=== PATIENT | female | born 1985 | race Caucasian/White ===

== ENCOUNTER 2018-02-26 20:09 | Emergency (ER) | payer MEDICAID ==
[2018-02-26 22:50] LABS: ADD MAN DIFF? NO
[2018-02-26 22:53] LABS: ABNORMAL IP MESSAGE 1; BASOPHILS % 0.3 % (0.0-2.0); EOSINOPHILS # 0.1 10^3/ul (0.0-0.5); EOSINOPHILS % 1.1 % (0.0-7.0); HEMATOCRIT 28.4 % (37.0-47.0); HEMOGLOBIN 7.8 g/dl (12.0-16.0); LYMPHOCYTES # 2.1 10^3/ul (0.8-2.9); LYMPHOCYTES % 33.5 % (15.0-51.0); MEAN CORPUSCULAR HEMOGLOBIN 20.3 pg (29.0-33.0); MEAN CORPUSCULAR HGB CONC 27.5 g/dl (32.0-37.0); MEAN PLATELET VOLUME 10.9 fl (7.4-10.4); MONOCYTE # 0.5 10^3/ul (0.3-0.9); MONOCYTES % 7.7 % (0.0-11.0); NEUTROPHIL # 3.6 10^3/ul (1.6-7.5); NEUTROPHILS % 57.1 % (39.0-77.0); PLATELET COUNT 357 10^3/UL (140-415); RED BLOOD COUNT 3.84 10^6/ul (4.20-5.40); RED CELL DISTRIBUTION WIDTH 24.9 % (11.5-14.5)
[2018-02-26 22:53] LABS: WHITE BLOOD COUNT 6.3 10^3/ul (4.8-10.8)
[2018-02-26 22:57] LABS: POSITIVE DIFF @See below
[2018-02-26 23:40] LABS: ADD UMIC YES; UR ASCORBIC ACID NEGATIVE (NEGATIVE); UR BACTERIA FEW /HPF (NONE SEEN); UR BILIRUBIN (Dip) NEGATIVE (NEGATIVE); UR BLOOD (Dip) NEGATIVE (NEGATIVE); UR CLARITY CLEAR (CLEAR); UR COLOR STRAW (YELLOW); UR GLUCOSE (Dip) NEGATIVE (NEGATIVE); UR KETONES (Dip) NEGATIVE (NEGATIVE); UR LEUKOCYTE ESTERASE (Dip) 2+ Leu/ul (NEGATIVE); UR NITRITE (Dip) NEGATIVE (NEGATIVE); UR RBC 3 /HPF (0-5); UR SQUAMOUS EPITHELIAL CELL FEW /HPF (FEW); UR TOTAL PROTEIN (Dip) NEGATIVE (NEGATIVE); UR UROBILINOGEN (Dip) NEGATIVE (NEGATIVE); UR WBC 4 /HPF (0-5)
[2018-02-27 00:58] LABS: ANISOCYTOSIS 3+ (0-0); ECHINOCYTOSIS 1+ (0-0); EOSINOPHILS % (M) 1 % (0-7); GIANT THROMBO% (M) 1 % (0-0); HYPOCHROMASIA 2+ (0-0); LYMPHOCYTES % (M) 32 % (15-51); MICROCYTOSIS 2+ (0-0); MONOCYTE #M 0.3 10^3/ul (0.3-0.9); MONOCYTES % (M) 6 % (0-11); OVALOCYTES 2+ (0-0); PLATELET ESTIMATE NORMAL; POIKILOCYTOSIS 2+ (0-0); POLYCHROMASIA 2+ (0-0); SEGMENTED NEUTROPHILS (M) % 61 % (39-77); SMUDGE%M 29 % (0-0); TEAR DROP CELLS 1+ (0-0)
== END 2018-02-27 00:35 | disposition home or self-care (01) ==
LOC: FTE 02-27 00:35
DX: O26.891 Other specified pregnancy related conditions, first trimester (principal); O23.41 Unspecified infection of urinary tract in pregnancy, first trimester; O99.011 Anemia complicating pregnancy, first trimester; R10.2 Pelvic and perineal pain; D64.9 Anemia, unspecified; Z3A.01 Less than 8 weeks gestation of pregnancy
CPT/HCPCS: 36415; 76801; 76817; 81001; 84702; 85025; 99284-25

== ENCOUNTER 2018-09-07 12:06 | Outpatient (CLI) | payer MEDICAID ==
[2018-09-07 13:15] LABS: ADD MAN DIFF? NO
[2018-09-07 13:18] LABS: BASOPHILS % 0.2 % (0.0-2.0); EOSINOPHILS % 0.4 % (0.0-7.0); HEMATOCRIT 33.5 % (37.0-47.0); HEMOGLOBIN 10.6 g/dl (12.0-16.0); LYMPHOCYTES # 1.6 10^3/ul (0.8-2.9); LYMPHOCYTES % 19.3 % (15.0-51.0); MEAN CORPUSCULAR HEMOGLOBIN 28.3 pg (29.0-33.0); MEAN CORPUSCULAR HGB CONC 31.6 g/dl (32.0-37.0); MEAN CORPUSCULAR VOLUME 89.6 fl (82.0-101.0); MEAN PLATELET VOLUME 11.5 fl (7.4-10.4); MONOCYTE # 0.6 10^3/ul (0.3-0.9); MONOCYTES % 7.1 % (0.0-11.0); NEUTROPHIL # 5.8 10^3/ul (1.6-7.5); NEUTROPHILS % 72.4 % (39.0-77.0); PLATELET COUNT 242 10^3/UL (140-415); RED BLOOD COUNT 3.74 10^6/ul (4.20-5.40); RED CELL DISTRIBUTION WIDTH 13.9 % (11.5-14.5)
[2018-09-07 13:18] LABS: WHITE BLOOD COUNT 8.1 10^3/ul (4.8-10.8)
[2018-09-07] MEDS ORDERED: FAMOTIDINE 20 MG INJ (13:31)
[2018-09-07 13:36] LABS: ALANINE AMINOTRANSFERASE 14 IU/L (13-69); ALBUMIN 3.3 g/dl (3.3-4.9); ALKALINE PHOSPHATASE 111 IU/L (42-121); AMYLASE 106 U/L (11-123); ANION GAP 12 (5-13); ASPARTATE AMINO TRANSFERASE 15 IU/L (15-46); BILIRUBIN,INDIRECT 0.1 mg/dl (0-1.1); BILIRUBIN,TOTAL 0.1 mg/dl (0.2-1.3); BLOOD UREA NITROGEN 8 mg/dl (7-20); CALCIUM 8.6 mg/dl (8.4-10.2); CARBON DIOXIDE 20 mmol/L (21-31); CHLORIDE 107 mmol/L (97-110); CREATININE 0.34 mg/dl (0.44-1.00); Estimated GFR > 60 mL/min (>60); GLUCOSE 87 mg/dl (70-220); LIPASE 62 U/L (23-300); POTASSIUM 4.1 mmol/L (3.5-5.1); SODIUM 139 mmol/L (135-144); TOTAL PROTEIN 6.3 g/dl (6.1-8.1)
[2018-09-07] MEDS: FAMOTIDINE 20 MG TAB PO (13:51)
[2018-09-07 13:59] LABS: ADD UMIC YES; UR ASCORBIC ACID NEGATIVE (NEGATIVE); UR BACTERIA FEW /HPF (NONE SEEN); UR BILIRUBIN (Dip) NEGATIVE (NEGATIVE); UR BLOOD (Dip) NEGATIVE (NEGATIVE); UR CLARITY SLIGHTLY CLOUDY (CLEAR); UR COLOR YELLOW (YELLOW); UR GLUCOSE (Dip) NEGATIVE (NEGATIVE); UR KETONES (Dip) 1+ mg/dL (NEGATIVE); UR LEUKOCYTE ESTERASE (Dip) 3+ Leu/ul (NEGATIVE); UR MUCUS FEW /HPF (NONE SEEN); UR NITRITE (Dip) NEGATIVE (NEGATIVE); UR RBC 1 /HPF (0-5); UR SPECIFIC GRAVITY (Dip) 1.025 (1.003-1.030); UR SQUAMOUS EPITHELIAL CELL FEW /HPF (FEW); UR TOTAL PROTEIN (Dip) NEGATIVE (NEGATIVE); UR UROBILINOGEN (Dip) NEGATIVE (NEGATIVE); UR WBC 16 /HPF (0-5)
== END 2018-09-07 16:00 | disposition home or self-care (01) ==
LOC: OBT 12:06 → L-D 12:06 → OBT 16:00
DX: O26.893 Other specified pregnancy related conditions, third trimester (principal); R10.9 Unspecified abdominal pain; Z3A.33 33 weeks gestation of pregnancy
CPT/HCPCS: 76705; 76818; 80053; 81001; 82150; 83690; 85025; 87086

== ENCOUNTER 2018-10-26 17:31 | Inpatient (IN) | payer MEDICAID ==
[2018-10-26 19:13] LABS: ADD MAN DIFF? NO
[2018-10-26 19:15] LABS: WHITE BLOOD COUNT 7.9 10^3/ul (4.8-10.8)
[2018-10-26 19:15] LABS: BASOPHILS % 0.4 % (0.0-2.0); EOSINOPHILS % 0.5 % (0.0-7.0); HEMATOCRIT 31.4 % (37.0-47.0); HEMOGLOBIN 9.5 g/dl (12.0-16.0); LYMPHOCYTES # 1.8 10^3/ul (0.8-2.9); LYMPHOCYTES % 22.4 % (15.0-51.0); MEAN CORPUSCULAR HEMOGLOBIN 26.6 pg (29.0-33.0); MEAN CORPUSCULAR HGB CONC 30.3 g/dl (32.0-37.0); MEAN PLATELET VOLUME 12.8 fl (7.4-10.4); MONOCYTE # 0.6 10^3/ul (0.3-0.9); MONOCYTES % 7.5 % (0.0-11.0); NEUTROPHIL # 5.4 10^3/ul (1.6-7.5); NEUTROPHILS % 68.1 % (39.0-77.0); NUCLEATED RED BLOOD CELLS% 0.4 /100WBC (0.0-0.0); PLATELET COUNT 201 10^3/UL (140-415); RED BLOOD COUNT 3.57 10^6/ul (4.20-5.40); RED CELL DISTRIBUTION WIDTH 16.5 % (11.5-14.5)
[2018-10-26 19:34] LABS: INR 0.89; PROTIME 12.1 Sec (11.9-14.9); PT RATIO 0.9
[2018-10-26 19:35] LABS: PARTIAL THROMBOPLASTIN TIME 24.8 Sec (23.0-35.0)
[2018-10-26 19:37] LABS: ALANINE AMINOTRANSFERASE 14 IU/L (13-69); ALBUMIN 3.1 g/dl (3.3-4.9); ALBUMIN/GLOBULIN RATIO 1.14; ALKALINE PHOSPHATASE 176 IU/L (42-121); ANION GAP 8 (5-13); ASPARTATE AMINO TRANSFERASE 19 IU/L (15-46); BILIRUBIN,INDIRECT 0.2 mg/dl (0-1.1); BILIRUBIN,TOTAL 0.2 mg/dl (0.2-1.3); BLOOD UREA NITROGEN 11 mg/dl (7-20); CALCIUM 8.7 mg/dl (8.4-10.2); CARBON DIOXIDE 19 mmol/L (21-31); CHLORIDE 110 mmol/L (97-110); CREATININE 0.52 mg/dl (0.44-1.00); Estimated GFR > 60 mL/min (>60); GLUCOSE 98 mg/dl (70-220); POTASSIUM 4.4 mmol/L (3.5-5.1); SODIUM 137 mmol/L (135-144); TOTAL PROTEIN 5.8 g/dl (6.1-8.1); URIC ACID 5.8 mg/dl (3.1-7.9)
[2018-10-26 20:09] LABS: ADD UMIC YES; UR ASCORBIC ACID NEGATIVE (NEGATIVE); UR BACTERIA FEW /HPF (NONE SEEN); UR BILIRUBIN (Dip) NEGATIVE (NEGATIVE); UR BLOOD (Dip) 2+ mg/dL (NEGATIVE); UR CLARITY SLIGHTLY CLOUDY (CLEAR); UR COLOR YELLOW (YELLOW); UR GLUCOSE (Dip) NEGATIVE (NEGATIVE); UR KETONES (Dip) NEGATIVE (NEGATIVE); UR LEUKOCYTE ESTERASE (Dip) 3+ Leu/ul (NEGATIVE); UR MUCUS FEW /HPF (NONE SEEN); UR NITRITE (Dip) NEGATIVE (NEGATIVE); UR RBC 7 /HPF (0-5); UR SPECIFIC GRAVITY (Dip) 1.014 (1.003-1.030); UR SQUAMOUS EPITHELIAL CELL FEW /HPF (FEW); UR TOTAL PROTEIN (Dip) NEGATIVE (NEGATIVE); UR UROBILINOGEN (Dip) NEGATIVE (NEGATIVE); UR WBC 55 /HPF (0-5)
[2018-10-26] MEDS ORDERED: LACTATED RINGER'S 1,000 ML IV (21:52)
[2018-10-26] MEDS ORDERED: BUTORPHANOL 2 MG INJ IV (22:00)
[2018-10-26] MEDS ORDERED: METHYLERGONOVINE 0.2 MG INJ IM (22:00)
[2018-10-26] MEDS ORDERED: OXYTOCIN 30 UNITS/LR 500 ML IV ×2 (22:00)
[2018-10-26] MEDS ORDERED: LIDOCAINE 1% (MPF) 30 ML INJ INJ (22:00)
[2018-10-26] MEDS ORDERED: MINERAL OIL LIGHT 10 ML VIAL TOP (22:00)
[2018-10-26] MEDS ORDERED: IBUPROFEN 600 MG TAB PO (22:00)
[2018-10-26] MEDS ORDERED: MISOPROSTOL 200 MCG TAB PR (22:00)
[2018-10-26] MEDS ORDERED: BUTORPHANOL 1 MG INJ IV (22:00)
[2018-10-26] MEDS ORDERED: CARBOPROST 250 MCG INJ IM (22:00)
[2018-10-27] MEDS: LACTATED RINGER'S 1,000 ML IV ×5 (00:32→23:47)
[2018-10-27] MEDS: OXYTOCIN 30 UNITS/LR 500 ML IV ×3 (01:48→13:55)
[2018-10-27] MEDS ORDERED: FENTAnyl 2MCG/ML-ROPIV 0.2% 100 ML (02:13)
[2018-10-27] MEDS ORDERED: FENTAnyl 2MCG/ML-ROPIV 0.2% 100 ML BAG EPI (02:30)
[2018-10-27] MEDS ORDERED: NALOXONE (0.4 MG/ML) INJ IV ×2 (02:30→10:30)
[2018-10-27] MEDS ORDERED: CITRIC ACID/NA CITRATE 30 ML CUP (07:59)
[2018-10-27] MEDS ORDERED: SOD CHLORIDE 0.9% 1,000 ML IV (08:00)
[2018-10-27] MEDS ORDERED: morphine SULFATE/PF (10 MG/10 ML) INJ (08:06)
[2018-10-27] MEDS ORDERED: OXYTOCIN 10 UNIT INJ (08:06)
[2018-10-27] MEDS ORDERED: PHENYLephrine (100 MCG/ML) 10ML SYG (08:06)
[2018-10-27] MEDS: AZITHROMYCIN 500MG/NS (PMX) 250 ML IV (08:21)
[2018-10-27] MEDS ORDERED: KETOROLAC 30 MG INJ (08:29)
[2018-10-27] MEDS ORDERED: METOCLOPRAMIDE 10 MG INJ (08:29)
[2018-10-27] MEDS ORDERED: DEXAMETHASONE 4 MG/ML 1 ML INJ (08:29)
[2018-10-27] MEDS: ONDANSETRON 4 MG INJ IV (08:30)
[2018-10-27 08:53] LABS: CBV Base Excess -4.2 mmol/L; CBV COHb 1.1 %; CBV Oxygen Sat 50.2 mmHG; CBV Total Hemglobin 15.7 g/dl; Cord Blood Venous AADO2 76.3 mmHg; Cord Blood Venous pO2 20.3 mmHG (15.0-45.0); MODE ROOM AIR; MetHgb Cord Venous 1.3 %; Sample Type CBV; Site CORD
[2018-10-27 08:55] LABS: Arterial Cord Blood pCO2 62.4 mmHG (25-50); CBA COHb 0.2 %; CBA Total Hemglobin 14.5 g/dl; Fraction OxyHgb Cord Arterial 5.1 %; MODE ROOM AIR; MetHgb Cord Arterial 2.5 %; Sample Type CBA; Site CORD
[2018-10-27] MEDS ORDERED: CARBOPROST 250 MCG INJ IM (09:00)
[2018-10-27] MEDS ORDERED: METHYLERGONOVINE 0.2 MG INJ IM (09:00)
[2018-10-27] MEDS ORDERED: OXYCODONE/ACETAMINOPHEN (5/325) TAB PO (09:00)
[2018-10-27] MEDS ORDERED: NACL 0.9% 3 ML SYG IV (09:00)
[2018-10-27] MEDS ORDERED: LANOLIN HPA 1 PKT TOP (09:00)
[2018-10-27] MEDS ORDERED: MISOPROSTOL 200 MCG TAB PR (09:00)
[2018-10-27] MEDS ORDERED: OXYTOCIN 30 UNITS/LR 500 ML IV (09:00)
[2018-10-27] MEDS ORDERED: DIPHENHYDRAMINE 50 MG INJ (09:55)
[2018-10-27] MEDS ORDERED: ACETAMINOPHEN 500 MG TAB PO (10:30)
[2018-10-27] MEDS ORDERED: HYDROmorphONE 0.5 MG/0.5 ML SYG IV (10:30)
[2018-10-27] MEDS ORDERED: NALBUPHINE HCL (10 MG/1 ML) INJ IV (10:30)
[2018-10-27] MEDS: CEFAZOLIN 2 GM/50 ML (PMX) 50 ML IVPB ×2 (10:58→17:01)
[2018-10-27] MEDS: CITRIC ACID/NA CITRATE 30 ML CUP PO (11:05)
[2018-10-27] MEDS: DIPHENHYDRAMINE 50 MG INJ IV (11:06)
[2018-10-27] MEDS ORDERED: morphine 4 MG/ML VIAL IV ×2 (11:30)
[2018-10-27] MEDS ORDERED: IBUPROFEN 600 MG TAB PO (12:00)
[2018-10-27] MEDS: KETOROLAC 30 MG INJ IV (15:06)
[2018-10-27 16:23] LABS: RAPID PLASMA REAGIN NONREACTIVE (NR)
[2018-10-27] MEDS: HYDROmorphONE 0.5 MG/0.5 ML SYG IV ×2 (17:14→22:37)
[2018-10-28] MEDS: CEFAZOLIN 2 GM/50 ML (PMX) 50 ML IVPB ×2 (00:47→08:26)
[2018-10-28] MEDS: KETOROLAC 30 MG INJ IV (05:19)
[2018-10-28 05:21] LABS: ADD MAN DIFF? NO
[2018-10-28 05:36] LABS: BASOPHILS % 0.2 % (0.0-2.0); EOSINOPHILS % 0.2 % (0.0-7.0); HEMATOCRIT 26.2 % (37.0-47.0); HEMOGLOBIN 7.8 g/dl (12.0-16.0); LYMPHOCYTES # 1.7 10^3/ul (0.8-2.9); LYMPHOCYTES % 17.1 % (15.0-51.0); MEAN CORPUSCULAR HEMOGLOBIN 26.4 pg (29.0-33.0); MEAN CORPUSCULAR HGB CONC 29.8 g/dl (32.0-37.0); MEAN CORPUSCULAR VOLUME 88.5 fl (82.0-101.0); MEAN PLATELET VOLUME 12.2 fl (7.4-10.4); MONOCYTE # 0.7 10^3/ul (0.3-0.9); MONOCYTES % 7.1 % (0.0-11.0); NEUTROPHIL # 7.4 10^3/ul (1.6-7.5); NEUTROPHILS % 74.4 % (39.0-77.0); PLATELET COUNT 159 10^3/UL (140-415); RED BLOOD COUNT 2.96 10^6/ul (4.20-5.40); RED CELL DISTRIBUTION WIDTH 16.8 % (11.5-14.5)
[2018-10-28 05:36] LABS: WHITE BLOOD COUNT 9.9 10^3/ul (4.8-10.8)
[2018-10-28] MEDS: LACTATED RINGER'S 1,000 ML IV ×3 (07:00→22:57)
[2018-10-28] MEDS: FERROUS SULFATE (EC) 325 MG TAB PO ×2 (08:26→21:41)
[2018-10-28] MEDS: IBUPROFEN 600 MG TAB PO ×3 (12:17→23:46)
[2018-10-28] MEDS: OXYCODONE/ACETAMINOPHEN (5/325) TAB PO (19:51)
[2018-10-29] MEDS: IBUPROFEN 600 MG TAB PO ×4 (05:31→23:14)
[2018-10-29] MEDS: LACTATED RINGER'S 1,000 ML IV ×2 (06:48→15:00)
[2018-10-29] MEDS: OXYCODONE/ACETAMINOPHEN (5/325) TAB PO (08:31)
[2018-10-29] MEDS: FERROUS SULFATE (EC) 325 MG TAB PO ×2 (08:32→20:52)
[2018-10-30] MEDS: HYDROCODONE/APAP (5/325) TAB PO (04:10)
[2018-10-30] MEDS: IBUPROFEN 600 MG TAB PO ×2 (05:33→12:10)
[2018-10-30] MEDS: FERROUS SULFATE (EC) 325 MG TAB PO (09:11)
== END 2018-10-30 15:30 | disposition home or self-care (01) | DRG 788 ==
LOC: OBT 17:31 → L-D 10-27 01:11 → OBT 21:40 → L-D 10-27 08:57 → MS1 10-27 11:38
PROC: 10D00Z1 Extraction of Products of Conception, Low, Open Approach (ICD-10-PCS; principal; 2018-10-27 08:00)
DX: O13.4 Gestational [pregnancy-induced] hypertension without significant proteinuria, complicating childbirth (principal); O76 Abnormality in fetal heart rate and rhythm complicating labor and delivery; O69.81X0 Labor and delivery complicated by cord around neck, without compression, not applicable or unspecified; O77.0 Labor and delivery complicated by meconium in amniotic fluid; Z3A.39 39 weeks gestation of pregnancy; Z37.0 Single live birth
CPT/HCPCS: 36415; 36600; 62319; 76815; 76818; 80053; 81001; 82803; 84560; 85025; 85384; 85610; 85730; 86592; 86850; 86900; 86901; 88307